=== PATIENT | male | born 1935 | race Caucasian/White ===

== ENCOUNTER → 2016-08-13 | Outpatient (CLI) | payer OTHER ==
[~2016-08-13] MED LIST: AMLO10TA2 PO; AMLO5TAB2 PO; ASCO10004 PO; BETAMETHASONE CREAM TP; CARV6.252 PO; CETI10CA PO; CHOL500015 PO; CINN500C2 PO; GLIP5TAB10 PO; HORS300C PO; INSU100I28 SC; IRON PO; LISI40TA PO; MAGN100T6 PO; MAGNESIUM PO; METF10002 PO; MULT-257 PO; OMNIPAQUE 350 MG/ML, 100ML BOTTLE ONE; OXYB10TA PO; RED600CA2 PO; RED600TA PO; SULF1TAB3 PO; TAMS0.4C2 PO; TRIAMCINOLONE CREAM TP; VISION FORMULA PO; [UNRECOGNIZED DRUG - CODE] PO; [UNRECOGNIZED DRUG - OTHER] PO
== END | disposition home or self-care (01) ==
LOC: CFH 13:03
PROVIDERS: ATTEND Specialist
DX: C43.71 Malignant melanoma of right lower limb, including hip (principal); R91.8 Other nonspecific abnormal finding of lung field; I70.0 Atherosclerosis of aorta; M85.88 Other specified disorders of bone density and structure, other site; Z90.5 Acquired absence of kidney
CPT/HCPCS: 71260; 74177; Q9967

== ENCOUNTER 2016-10-10 17:14 | Emergency (ER) | payer OTHER ==
[~2016-10-10] VITALS: Ht 172.7 cm; Wt 82.2 kg
[~2016-10-10 17:14] MED LIST changes: -OMNIPAQUE 350 MG/ML, 100ML BOTTLE ONE
[2016-10-10] MEDS ORDERED: SODIUM CHLORIDE 0.9% 1,000ML IVBOLUS ONE (17:30)
[2016-10-10] MEDS ORDERED: LISI40TA PO (18:11)
[2016-10-10] MEDS ORDERED: LACT1CAP11 PO (18:11)
[2016-10-10] MEDS ORDERED: GLIP10TA13 PO (18:11)
[2016-10-10] MEDS ORDERED: TRIA1KIT12 TD (18:11)
[2016-10-10] MEDS ORDERED: [UNRECOGNIZED DRUG - OTHER] PO (18:11)
[2016-10-10 18:53] LABS: BLOOD UREA NITROGEN 41 mg/dL (7-18)
[2016-10-10 18:58] LABS: ASPARTATE AMINO TRANSFERASE 21 U/L (15-37)
[2016-10-10 20:22] VITALS: BP 119/55
== END 2016-10-10 20:26 | disposition home or self-care (01) ==
LOC: ED 19:45
DX: D64.81 Anemia due to antineoplastic chemotherapy (principal); C79.9 Secondary malignant neoplasm of unspecified site; Z09 Encounter for follow-up examination after completed treatment for conditions other than malignant neoplasm; I10 Essential (primary) hypertension; E11.9 Type 2 diabetes mellitus without complications
CPT/HCPCS: 36415; 80053; 81001; 85025; 93005; 96360; 99285; J7030

== ENCOUNTER → 2016-11-06 | Outpatient (CLI) | payer OTHER ==
[~2016-11-06] MED LIST changes: +GLIP10TA13 PO; +LACT1CAP11 PO; +TRIA1KIT12 TD
== END | disposition home or self-care (01) ==
LOC: CFH 08:49
PROVIDERS: ATTEND Urology
DX: C64.9 Malignant neoplasm of unspecified kidney, except renal pelvis (principal); N40.0 Benign prostatic hyperplasia without lower urinary tract symptoms; N28.1 Cyst of kidney, acquired; Z90.5 Acquired absence of kidney
CPT/HCPCS: 71010; 76770

== ENCOUNTER → 2016-12-09 | Outpatient (CLI) | payer OTHER ==
[~2016-12-09] MED LIST changes: +OMNIPAQUE 350 MG/ML, 100ML BOTTLE ONE
== END | disposition home or self-care (01) ==
LOC: CFH 11:36
PROVIDERS: ATTEND Specialist
DX: J84.10 Pulmonary fibrosis, unspecified (principal); R91.8 Other nonspecific abnormal finding of lung field; R59.0 Localized enlarged lymph nodes; K66.8 Other specified disorders of peritoneum; K57.30 Diverticulosis of large intestine without perforation or abscess without bleeding; N28.1 Cyst of kidney, acquired; N40.0 Benign prostatic hyperplasia without lower urinary tract symptoms; K86.9 Disease of pancreas, unspecified; I70.0 Atherosclerosis of aorta; C43.71 Malignant melanoma of right lower limb, including hip
CPT/HCPCS: 71260; 74177; Q9967

== ENCOUNTER → 2017-01-23 | Outpatient (CLI) | payer OTHER ==
[~2017-01-23] MED LIST changes: +SULF-169 PO; -SULF1TAB3 PO
== END | disposition home or self-care (01) ==
LOC: CFH 09:21
PROVIDERS: ATTEND Specialist
DX: R91.8 Other nonspecific abnormal finding of lung field (principal); C43.71 Malignant melanoma of right lower limb, including hip; N28.1 Cyst of kidney, acquired; R59.0 Localized enlarged lymph nodes; J84.10 Pulmonary fibrosis, unspecified
CPT/HCPCS: 71260; 74177; Q9967

== ENCOUNTER → 2017-02-06 | Outpatient (CLI) | payer OTHER ==
[~2017-02-06] MED LIST changes: +GADOBUTROL 7.5 MMOL/7.5 ML PFS ONE; -OMNIPAQUE 350 MG/ML, 100ML BOTTLE ONE
== END | disposition home or self-care (01) ==
LOC: RAD 13:22
PROVIDERS: ATTEND Family Medicine
DX: I63.9 Cerebral infarction, unspecified (principal); R25.1 Tremor, unspecified; R53.1 Weakness; Z85.820 Personal history of malignant melanoma of skin
CPT/HCPCS: 70553; A9585

== ENCOUNTER → 2017-02-09 | Outpatient (CLI) | payer OTHER ==
[~2017-02-09] MED LIST changes: -GADOBUTROL 7.5 MMOL/7.5 ML PFS ONE
== END | disposition home or self-care (01) ==
LOC: PETCFH 09:08
PROVIDERS: ATTEND Specialist
DX: C43.9 Malignant melanoma of skin, unspecified (principal)
CPT/HCPCS: 78306; A9503

== ENCOUNTER → 2017-04-21 | Outpatient (CLI) | payer OTHER ==
[~2017-04-21] MED LIST changes: +OMNIPAQUE 350 MG/ML, 100ML BOTTLE ONE
== END | disposition home or self-care (01) ==
LOC: CFH 10:01
PROVIDERS: ATTEND Specialist
DX: C43.71 Malignant melanoma of right lower limb, including hip (principal)
CPT/HCPCS: 71260; 74177; Q9967

== ENCOUNTER → 2017-06-12 | Outpatient (CLI) | payer OTHER ==
[~2017-06-12] MED LIST changes: -OMNIPAQUE 350 MG/ML, 100ML BOTTLE ONE
== END | disposition home or self-care (01) ==
LOC: CFH 08:00
PROVIDERS: ATTEND Specialist
DX: N28.1 Cyst of kidney, acquired (principal); C43.71 Malignant melanoma of right lower limb, including hip; N40.0 Benign prostatic hyperplasia without lower urinary tract symptoms
CPT/HCPCS: 76770

== ENCOUNTER → 2017-06-25 | Outpatient (CLI) | payer OTHER ==
[~2017-06-25] MED LIST changes: +OMNIPAQUE 350 MG/ML, 100ML BOTTLE ONE
== END ==
LOC: CFH 12:56
PROVIDERS: ATTEND Specialist
DX: C43.71 Malignant melanoma of right lower limb, including hip (principal); C64.1 Malignant neoplasm of right kidney, except renal pelvis
CPT/HCPCS: 71260; 74177; Q9967

== ENCOUNTER → 2017-07-27 | Outpatient (CLI) | payer OTHER ==
[~2017-07-27] MED LIST changes: +GADOBUTROL 7.5 MMOL/7.5 ML VIAL ONE; -OMNIPAQUE 350 MG/ML, 100ML BOTTLE ONE
== END | disposition home or self-care (01) ==
LOC: CFH 11:45
PROVIDERS: ATTEND Specialist
DX: I67.82 Cerebral ischemia (principal); G31.89 Other specified degenerative diseases of nervous system; R90.82 White matter disease, unspecified; J34.1 Cyst and mucocele of nose and nasal sinus; C43.71 Malignant melanoma of right lower limb, including hip; C64.1 Malignant neoplasm of right kidney, except renal pelvis
CPT/HCPCS: 70553; A9585

== ENCOUNTER → 2017-09-22 | Outpatient (CLI) | payer OTHER ==
[~2017-09-22] MED LIST changes: -GADOBUTROL 7.5 MMOL/7.5 ML VIAL ONE; +OMNIPAQUE 350 MG/ML, 100ML BOTTLE ONE
== END | disposition home or self-care (01) ==
LOC: CFH 11:11
PROVIDERS: ATTEND Specialist
DX: C64.1 Malignant neoplasm of right kidney, except renal pelvis (principal); R59.1 Generalized enlarged lymph nodes; C43.71 Malignant melanoma of right lower limb, including hip
CPT/HCPCS: 71260; 74177; Q9967

== ENCOUNTER → 2017-12-11 | Outpatient (CLI) | payer OTHER | END | disposition home or self-care (01) | LOC: CFH 13:19 | PROVIDERS: ATTEND Specialist | DX: J84.10 Pulmonary fibrosis, unspecified (principal); R59.0 Localized enlarged lymph nodes; N28.1 Cyst of kidney, acquired; C43.71 Malignant melanoma of right lower limb, including hip | CPT/HCPCS: 71260; 74177; Q9967 ==

== ENCOUNTER → 2018-05-07 | Outpatient (CLI) | payer OTHER ==
[~2018-05-07] MED LIST changes: +AMLO-150 PO; -AMLO10TA2 PO; +AMLO10TA6 PO; -AMLO5TAB2 PO
== END | disposition home or self-care (01) ==
LOC: CFH 12:15
PROVIDERS: ATTEND Specialist
DX: C64.1 Malignant neoplasm of right kidney, except renal pelvis (principal); C43.71 Malignant melanoma of right lower limb, including hip; I70.0 Atherosclerosis of aorta; R91.1 Solitary pulmonary nodule
CPT/HCPCS: 71260; 74177; Q9967

== ENCOUNTER → 2018-06-30 | Outpatient (CLI) | payer MEDICARE ==
[~2018-06-30] MED LIST changes: -AMLO10TA6 PO; +AMLO10TA8 PO
== END | disposition home or self-care (01) ==
LOC: CFH 08:02
PROVIDERS: ATTEND Specialist
DX: C64.1 Malignant neoplasm of right kidney, except renal pelvis (principal); C43.71 Malignant melanoma of right lower limb, including hip; R59.0 Localized enlarged lymph nodes; M85.88 Other specified disorders of bone density and structure, other site
CPT/HCPCS: 71260; 74177; Q9967

== ENCOUNTER 2018-07-06 08:17 | Day surgery (SDC) | payer MEDICARE ==
[~2018-07-06] VITALS: Ht 172.7 cm; Wt 73.0 kg
[~2018-07-06 08:17] MED LIST changes: -OMNIPAQUE 350 MG/ML, 100ML BOTTLE ONE
[2018-07-06 09:09] VITALS: BP 150/76
[2018-07-06] MEDS ORDERED: SODIUM CHLORIDE 0.9% 1,000 ML IV SCH (09:30)
[2018-07-06] MEDS ORDERED: FLUMAZENIL 0.1 MG/1 ML, 5ML ONE (10:11)
[2018-07-06] MEDS ORDERED: FENTANYL PF 100 MCG/2ML ONE ×2 (10:11)
[2018-07-06] MEDS ORDERED: NALOXONE 1 MG/ML, 2ML ONE (10:11)
[2018-07-06] MEDS ORDERED: MIDAZOLAM 1 MG/ML, 5ML ONE (10:11)
[2018-07-06] MEDS ORDERED: LIDOCAINE-MPF 1%, 5ML ONE (10:22)
== END 2018-07-06 12:45 | disposition home or self-care (01) ==
LOC: OUT 08:17
PROVIDERS: ATTEND Specialist
DX: C64.1 Malignant neoplasm of right kidney, except renal pelvis (principal); C43.71 Malignant melanoma of right lower limb, including hip; E11.9 Type 2 diabetes mellitus without complications; I10 Essential (primary) hypertension; Z87.891 Personal history of nicotine dependence; Z98.890 Other specified postprocedural states
CPT/HCPCS: 49180; 77012; 88305; 99156; 99157; J2250; J3010; J7030; J2310

== ENCOUNTER → 2018-07-26 | Outpatient (CLI) | payer MEDICARE | END | disposition home or self-care (01) | LOC: RAD 09:14 | PROVIDERS: ATTEND Specialist | DX: R13.10 Dysphagia, unspecified (principal) | CPT/HCPCS: 74230 ==

== ENCOUNTER → 2018-08-31 | Outpatient (CLI) | payer MEDICARE ==
[~2018-08-31] MED LIST changes: +GADOBUTROL 7.5 MMOL/7.5 ML PFS ONE
== END | disposition home or self-care (01) ==
LOC: CFH 10:26
PROVIDERS: ATTEND Urology
DX: M47.816 Spondylosis without myelopathy or radiculopathy, lumbar region (principal); R59.9 Enlarged lymph nodes, unspecified; N39.41 Urge incontinence
CPT/HCPCS: 72158; A9585

== ENCOUNTER 2018-09-12 22:11 | Emergency (ER) | payer MEDICARE ==
[~2018-09-12] VITALS: Ht 172.7 cm; Wt 75.0 kg
[~2018-09-12 22:11] MED LIST changes: -GADOBUTROL 7.5 MMOL/7.5 ML PFS ONE
[2018-09-12] MEDS: SODIUM CHLORIDE FLUSH 10ML SYR IVF ONE (22:30)
[2018-09-12] MEDS: PLEASE ENTER HEIGHT AND WEIGHT MC SCH (22:30)
[2018-09-12] MEDS ORDERED: PRED2.5T PO (22:32)
[2018-09-12] MEDS ORDERED: OPDIVO (22:32)
--- NOTE | 2018-09-12 22:36 | NUR ---
PT PLACED IN HOPTAL GOWN. EKG DONE. LABS HAVE BEEN DRAWN. PT AT BEDSIDE. BILAT BEDRAILS UP. CALL LIGHT WITHIN REACH. PT GOING FOR CT AT THIS TIME.
[2018-09-12 22:39] LABS: BASOPHILS # (AUTO) 0.02 x10^3/uL (0-0.1); BASOPHILS % (AUTO) 0 % (0-1); EOSINOPHILS # (AUTO) 0.22 x10^3/uL (0-0.4); EOSINOPHILS % (AUTO) 3 % (1-7); LYMPHOCYTES # (AUTO) 0.72 x10^3/uL (1-3.4); LYMPHOCYTES % (AUTO) 10 % (22-44); MD NO; MEAN CORPUSCULAR HEMOGLOBIN 28.3 pg (27.5-34.5); MEAN CORPUSCULAR HGB CONC 33.8 g/dL (33.2-36.2); MEAN CORPUSCULAR VOLUME 83.9 fL (81-97); MEAN PLATELET VOLUME 7.2 fL (7.4-10.4); MONOCYTES # (AUTO) 0.39 x10^3/uL (0.2-0.8); MONOCYTES % (AUTO) 5 % (2-9); NEUTROPHILS # (AUTO) 6.08 x10^3/uL (1.8-6.8); NEUTROPHILS % (AUTO) 82 % (42-75); PLATELET COUNT 237 x10^3/uL (130-400); RED BLOOD COUNT 4.12 x10^6/uL (4.38-5.82)
[2018-09-12 22:52] LABS: ALANINE AMINOTRANSFERASE 18 U/L (12-78); ALBUMIN 3.4 g/dL (3.4-5.0); ANION GAP 8 mmol/L (5-15); CALCIUM 8.7 mg/dL (8.5-10.1); CHLORIDE 111 mmol/L (98-107); CREATININE 1.41 mg/dL (0.7-1.3)
[2018-09-12 22:57] LABS: ALKALINE PHOSPHATASE 102 U/L (45-117); BILIRUBIN,TOTAL 0.2 mg/dL (0.2-1.0); TOTAL PROTEIN 6.8 g/dL (6.4-8.2); TROPONIN I < 0.015 ng/mL (0.000-0.045)
[2018-09-12] MEDS ORDERED: ONDANSETRON 2MG/ML, 2ML ONE (23:15)
[2018-09-12 23:54] VITALS: BP 176/72
[2018-09-13 00:04] LABS: MICROSCOPIC AUTO
[2018-09-13 00:05] LABS: CULTURE INDICATED? NO
[2018-09-13] MEDS: ONDANSETRON 2MG/ML, 2ML IVPush ONE (00:27)
== END 2018-09-13 00:47 | disposition home or self-care (01) ==
LOC: ED 23:41
DX: N20.2 Calculus of kidney with calculus of ureter (principal); E11.9 Type 2 diabetes mellitus without complications; I11.9 Hypertensive heart disease without heart failure
CPT/HCPCS: 36415; 71045; 74176; 80053; 81001; 83690; 84484; 85025; 93005; 99284

== ENCOUNTER 2018-12-14 10:06 | Outpatient (CLI) | payer MEDICARE | END 2018-12-14 23:59 | disposition home or self-care (01) | LOC: CFH 10:06 | PROVIDERS: ATTEND Specialist | DX: C43.71 Malignant melanoma of right lower limb, including hip (principal); N28.1 Cyst of kidney, acquired; R59.0 Localized enlarged lymph nodes | CPT/HCPCS: 71250; 74176 ==

== ENCOUNTER → 2019-06-14 | Outpatient (CLI) | payer MEDICARE ==
[~2019-06-14] MED LIST changes: +OMNIPAQUE 350 MG/ML, 100ML BOTTLE ONE; +OPDIVO; +OSEL75CA14 PO; -OXYB10TA PO; +OXYB10TA26 PO; +PRED2.5T PO
== END | disposition home or self-care (01) ==
LOC: CFH 12:16
PROVIDERS: ATTEND Specialist
DX: C64.1 Malignant neoplasm of right kidney, except renal pelvis (principal); C43.71 Malignant melanoma of right lower limb, including hip; N28.1 Cyst of kidney, acquired; R59.1 Generalized enlarged lymph nodes
CPT/HCPCS: 71260; 74177; Q9967

== ENCOUNTER → 2019-07-11 | Outpatient (CLI) | payer MEDICARE ==
[~2019-07-11] MED LIST changes: -OMNIPAQUE 350 MG/ML, 100ML BOTTLE ONE
== END | disposition home or self-care (01) ==
LOC: CFH 12:57
PROVIDERS: ATTEND Nurse Practitioner
DX: C43.71 Malignant melanoma of right lower limb, including hip (principal); C64.1 Malignant neoplasm of right kidney, except renal pelvis; Z79.899 Other long term (current) drug therapy; C77.9 Secondary and unspecified malignant neoplasm of lymph node, unspecified; C79.51 Secondary malignant neoplasm of bone
CPT/HCPCS: 71046

== ENCOUNTER → 2019-09-21 | Outpatient (CLI) | payer MEDICARE ==
[~2019-09-21] MED LIST changes: +GADOTERATE 7.5 MMOL/15 ML SYR ONE; +OMNIPAQUE 350 MG/ML, 100ML BOTTLE ONE
== END | disposition home or self-care (01) ==
LOC: CFH 12:55
PROVIDERS: ATTEND Specialist
DX: C64.1 Malignant neoplasm of right kidney, except renal pelvis (principal); C43.71 Malignant melanoma of right lower limb, including hip; R26.81 Unsteadiness on feet; M62.81 Muscle weakness (generalized); R41.3 Other amnesia; C43.9 Malignant melanoma of skin, unspecified; G31.9 Degenerative disease of nervous system, unspecified; I67.82 Cerebral ischemia; J84.10 Pulmonary fibrosis, unspecified; G06.0 Intracranial abscess and granuloma; R59.0 Localized enlarged lymph nodes
CPT/HCPCS: 70553; 71260; 74177; A9575; Q9967

== ENCOUNTER 2019-10-07 10:58 | Emergency (ER) | payer MEDICARE ==
[~2019-10-07] VITALS: Ht 172.7 cm; Wt 64.5 kg
[~2019-10-07 10:58] MED LIST changes: -GADOTERATE 7.5 MMOL/15 ML SYR ONE; -OMNIPAQUE 350 MG/ML, 100ML BOTTLE ONE
--- NOTE | 2019-10-07 11:07 | NUR ---
TISSUE COORDINATOR: OBTAINED PT'S BGL, 300. REPORT TO IRRIGATION PUMP INSTALLER.
--- NOTE | 2019-10-07 11:43 | NUR ---
PT BIB SPOUSE FOR HIGH BLOOD SUGARS SINCE MID AUGUST THAT SHE SEEMS TO NOT HAVE UNDER CONTROL. PT HAS HAD FEVERS SINCE YESTERDAY ACCOMPANIED BY SORE THROAT. SPOUSE REPORTS HE HAS HAS CHRONIC COUGH FOR YEARS. BS IN TRIAGE WAS 300. SPOUSE REPORTS HE HAS NOT BEEN TAKING GLIPIZIDE SHE CAN NOT FIND IT IN HIS MEDICINE CABINET. PT HAS WOUND TO LEFT BUTTOCKS.
--- NOTE | 2019-10-07 12:03 | NUR ---
RECEIVED REPORT FROM POLINA CHEN. ASSUMING CARE AT THIS TIME.
[2019-10-07] MEDS ORDERED: LEVO5TAB29 PO (12:04)
[2019-10-07] MEDS ORDERED: CARB1TAB46 PO (12:04)
[2019-10-07] MEDS ORDERED: ASCO500T7 PO (12:04)
[2019-10-07] MEDS ORDERED: CETI10CA PO (12:04)
[2019-10-07] MEDS ORDERED: OPDIVO (12:04)
[2019-10-07] MEDS ORDERED: ATOR10TA PO (12:04)
[2019-10-07] MEDS ORDERED: LISI-170 PO (12:04)
[2019-10-07 12:34] LABS: BASOPHILS # (AUTO) 0.01 x10^3/uL (0-0.1); BASOPHILS % (AUTO) 0 % (0-1); EOSINOPHILS % (AUTO) 2 % (1-7); LYMPHOCYTES # (AUTO) 0.37 x10^3/uL (1-3.4); LYMPHOCYTES % (AUTO) 7 % (22-44); MD NO; MEAN CORPUSCULAR HEMOGLOBIN 28.3 pg (27.5-34.5); MEAN CORPUSCULAR HGB CONC 33.1 g/dL (33.2-36.2); MEAN CORPUSCULAR VOLUME 85.6 fL (81-97); MEAN PLATELET VOLUME 7.8 fL (7.4-10.4); MONOCYTES # (AUTO) 0.28 x10^3/uL (0.2-0.8); MONOCYTES % (AUTO) 5 % (2-9); NEUTROPHILS # (AUTO) 4.94 x10^3/uL (1.8-6.8); NEUTROPHILS % (AUTO) 87 % (42-75); PLATELET COUNT 217 x10^3/uL (130-400); RED BLOOD COUNT 3.69 x10^6/uL (4.38-5.82); RED CELL DISTRIBUTION WIDTH 13.7 % (9.4-14.8)
--- NOTE | 2019-10-07 12:40 | NUR ---
PT RESTING COMFORTABLY ON GURNEY. NADN. WARM BLANKET PROVIDED. AT BEDSIDE.
[2019-10-07 12:48] LABS: ALBUMIN 2.9 g/dL (3.4-5.0); ANION GAP 9 mmol/L (5-15); CALCIUM 8.4 mg/dL (8.5-10.1); CHLORIDE 102 mmol/L (98-107)
[2019-10-07 12:51] LABS: CREATININE 1.42 mg/dL (0.7-1.3)
[2019-10-07 13:30] LABS: MICROSCOPIC INDICATED
--- NOTE | 2019-10-07 13:43 | NUR ---
ALL RESULTS ARE BACK AT THIS TIME. CHART UP FOR RECHECK.
[2019-10-07 13:53] VITALS: BP 145/65
--- NOTE | 2019-10-07 14:01 | NUR ---
MD AT BEDSIDE TO UPDATE PT AND ON POC.
[2019-10-07] MEDS ORDERED: CEPHALEXIN 500 MG CAPSULE ONE (14:29)
[2019-10-07] MEDS ORDERED: CEPHALEXIN 500 MG CAPSULE PO ONE (14:30)
== END 2019-10-07 14:42 | disposition home or self-care (01) ==
LOC: ED 14:00
DX: E10.65 Type 1 diabetes mellitus with hyperglycemia (principal); L89.151 Pressure ulcer of sacral region, stage 1; R53.1 Weakness; R50.9 Fever, unspecified; J02.9 Acute pharyngitis, unspecified; Z20.828 Contact with and (suspected) exposure to other viral communicable diseases; E11.9 Type 2 diabetes mellitus without complications
CPT/HCPCS: 36415; 71045; 80048; 81001; 82040; 83605; 83615; 84145; 85025; 87040; 93005; 99285; U0001; 82962

== ENCOUNTER → 2020-01-05 | Outpatient (CLI) | payer MEDICARE ==
[~2020-01-05] MED LIST changes: +ASCO500T7 PO; +ATOR10TA PO; +CARB1TAB46 PO; +LEVO5TAB29 PO; +LISI-170 PO
== END | disposition home or self-care (01) ==
LOC: CFH 09:00
PROVIDERS: ATTEND Specialist
DX: C43.71 Malignant melanoma of right lower limb, including hip (principal); N28.1 Cyst of kidney, acquired; R59.0 Localized enlarged lymph nodes; Q63.9 Congenital malformation of kidney, unspecified
CPT/HCPCS: 71250; 74176

== ENCOUNTER → 2020-01-17 | Outpatient (CLI) | payer MEDICARE ==
[~2020-01-17] MED LIST changes: +ASCO100018 PO; -ASCO10004 PO
== END | disposition home or self-care (01) ==
LOC: RAD 09:24
PROVIDERS: ATTEND Psychiatry & Neurology Neurology
DX: M47.812 Spondylosis without myelopathy or radiculopathy, cervical region (principal); G20 Parkinson's disease
CPT/HCPCS: 72141

== ENCOUNTER 2020-02-09 01:57 | Observation (INO) | payer MEDICARE ==
[~2020-02-09] VITALS: Ht 172.7 cm; Wt 71.7 kg
--- NOTE | 2020-02-09 03:20 | NUR ---
Pt at bedside. informed nurse that pt is DM and last time he fell his BS had dropped, so to please check. RN checked BS = 27, recheck BS = 30. RN notified MD. Pt given 2 apple juices. ANITHA.
[2020-02-09] MEDS ORDERED: SODIUM CHLORIDE FLUSH 10ML SYR IVF ONE (03:30)
--- NOTE | 2020-02-09 03:40 | NUR ---
BS recheck 51, given 2 more apple juices. WCMARTIN.
[2020-02-09 03:49] LABS: ALANINE AMINOTRANSFERASE 9 U/L (12-78); ALBUMIN 3.5 g/dL (3.4-5.0); ANION GAP 6 mmol/L (5-15); CALCIUM 8.9 mg/dL (8.5-10.1); CHLORIDE 110 mmol/L (98-107); CREATININE 1.34 mg/dL (0.7-1.3)
[2020-02-09 03:52] LABS: BASOPHILS # (AUTO) 0.01 x10^3/uL (0-0.1); BASOPHILS % (AUTO) 0 % (0-1); EOSINOPHILS # (AUTO) 0.06 x10^3/uL (0-0.4); EOSINOPHILS % (AUTO) 1 % (1-7); LYMPHOCYTES # (AUTO) 0.48 x10^3/uL (1-3.4); LYMPHOCYTES % (AUTO) 8 % (22-44); MD NO; MEAN CORPUSCULAR HEMOGLOBIN 28.1 pg (27.5-34.5); MEAN PLATELET VOLUME 7.5 fL (7.4-10.4); MONOCYTES # (AUTO) 0.38 x10^3/uL (0.2-0.8); MONOCYTES % (AUTO) 6 % (2-9); NEUTROPHILS # (AUTO) 4.97 x10^3/uL (1.8-6.8); NEUTROPHILS % (AUTO) 84 % (42-75); PLATELET COUNT 232 x10^3/uL (130-400); RED BLOOD COUNT 3.51 x10^6/uL (4.38-5.82); RED CELL DISTRIBUTION WIDTH 14.4 % (9.4-14.8)
[2020-02-09 03:54] LABS: MICROSCOPIC AUTO
--- NOTE | 2020-02-09 03:54 | NUR ---
Airport Sales Agent Rslt BS 41 per lab. aware.
[2020-02-09 03:59] LABS: ALKALINE PHOSPHATASE 76 U/L (45-117); BILIRUBIN,TOTAL 0.3 mg/dL (0.2-1.0); T4 (THYROXINE) 8.9 mcg/dL (4.5-12.1); TOTAL PROTEIN 6.6 g/dL (6.4-8.2); TROPONIN I < 0.015 ng/mL (0.000-0.045)
[2020-02-09] MEDS ORDERED: POTASSIUM PHOSPHATE IV SCH (04:30)
[2020-02-09] MEDS ORDERED: D5 IV SCH (04:30)
[2020-02-09] MEDS ORDERED: NACL IV SCH (04:30)
[2020-02-09] MEDS ORDERED: POTASSIUM CHLORIDE IV SCH (04:30)
--- NOTE | 2020-02-09 05:32 | NUR ---
Report given to GUSTAVO Myles.
[2020-02-09] MEDS ORDERED: DEXTROSE 4 GM TAB.CHEW PO PRN (06:00)
[2020-02-09] MEDS ORDERED: DEXTROSE 50%, 50ML SYRINGE IVPush PRN (06:00)
[2020-02-09] MEDS ORDERED: GLUCAGON 1 MG IM PRN (06:00)
[2020-02-09 06:27] VITALS: BP 136/67
[2020-02-09 07:05] LABS: FREE T4 (FREE THYROXINE) 1.08 ng/dL (0.76-1.46)
[2020-02-09 07:17] VITALS: BP 126/54
[2020-02-09] MEDS: SODIUM CHLORIDE FLUSH 10ML SYR IVF SCH ×2 (09:43→21:00)
[2020-02-09 12:22] VITALS: BP 141/69
[2020-02-09] MEDS: APIXABAN 5 MG TABLET PO SCH ×2 (13:40→22:26)
[2020-02-09] MEDS ORDERED: HORS300C PO (18:46)
[2020-02-09] MEDS ORDERED: DIPH25CA64 PO (18:46)
[2020-02-09 19:02] VITALS: BP 150/77
[2020-02-09 20:48] VITALS: BP 160/72
[2020-02-09 20:50] VITALS: BP 145/63
[2020-02-10] MEDS ORDERED: RED600TA PO (01:05)
[2020-02-10] MEDS ORDERED: LUTE40CA PO (01:05)
[2020-02-10] MEDS ORDERED: PIOG15TA66 PO (01:05)
[2020-02-10 01:11] VITALS: BP 159/71
[2020-02-10 04:56] LABS: BASOPHILS # (AUTO) 0.01 x10^3/uL (0-0.1); BASOPHILS % (AUTO) 0 % (0-1); EOSINOPHILS # (AUTO) 0.14 x10^3/uL (0-0.4); EOSINOPHILS % (AUTO) 3 % (1-7); LYMPHOCYTES # (AUTO) 0.56 x10^3/uL (1-3.4); LYMPHOCYTES % (AUTO) 11 % (22-44); MD NO; MEAN CORPUSCULAR HEMOGLOBIN 28.5 pg (27.5-34.5); MEAN CORPUSCULAR HGB CONC 32.8 g/dL (33.2-36.2); MONOCYTES # (AUTO) 0.42 x10^3/uL (0.2-0.8); MONOCYTES % (AUTO) 9 % (2-9); NEUTROPHILS # (AUTO) 3.74 x10^3/uL (1.8-6.8); NEUTROPHILS % (AUTO) 77 % (42-75); PLATELET COUNT 199 x10^3/uL (130-400); RED BLOOD COUNT 3.25 x10^6/uL (4.38-5.82)
[2020-02-10 05:03] LABS: ANION GAP 6 mmol/L (5-15); CALCIUM 8.5 mg/dL (8.5-10.1); CHLORIDE 109 mmol/L (98-107); CHOLESTEROL, TOTAL 118 mg/dL (140-239); CREATININE 1.16 mg/dL (0.7-1.3); TRIGLYCERIDES 79 mg/dL (50-200); VLDL CHOLESTEROL 16 mg/dL (0-25)
[2020-02-10 05:05] LABS: CHOL/HDL RATIO 2.2; HDL CHOL % 46 % (26-37); HDL CHOLESTEROL (DIRECT) 54 mg/dL (40-60); LDL CHOLESTEROL,CALCULATED 48 mg/dL (54-169); LDL/HDL RATIO 0.9 (0.5-3.0)
[2020-02-10 07:57] VITALS: BP 173/77
[2020-02-10 08:02] VITALS: BP 169/66
[2020-02-10 08:12] VITALS: BP 140/58
[2020-02-10] MEDS: APIXABAN 5 MG TABLET PO SCH (09:00)
[2020-02-10] MEDS: SODIUM CHLORIDE FLUSH 10ML SYR IVF SCH (09:00)
[2020-02-10] MEDS ORDERED: APIX5TAB PO (10:53)
[2020-02-10] MEDS ORDERED: FLU VACC QS2020-21(6MOS UP)/PF 60MCG/0.5 ML SYR IM-VACC ONE (13:00)
[2020-02-10 14:23] VITALS: BP 167/72
[2020-02-13] MEDS ORDERED: APIXABAN 5 MG TABLET PO SCH (09:00)
== END 2020-02-10 15:45 | disposition home or self-care (01) ==
LOC: ED 04:36 → EDIP 04:57 → INTOOBSV 04:57 → 3N 05:43 → DCLOUNGE 02-10 15:36
PROVIDERS: ADMIT Family Medicine; ATTEND Family Medicine
DX: E11.649 Type 2 diabetes mellitus with hypoglycemia without coma (principal); S06.0X9A Concussion with loss of consciousness of unspecified duration, initial encounter; I82.401 Acute embolism and thrombosis of unspecified deep veins of right lower extremity; R60.9 Edema, unspecified; E11.9 Type 2 diabetes mellitus without complications; D50.0 Iron deficiency anemia secondary to blood loss (chronic); C43.9 Malignant melanoma of skin, unspecified; C79.9 Secondary malignant neoplasm of unspecified site; G20 Parkinson's disease; I10 Essential (primary) hypertension; E78.5 Hyperlipidemia, unspecified; J44.9 Chronic obstructive pulmonary disease, unspecified; N40.0 Benign prostatic hyperplasia without lower urinary tract symptoms; L29.9 Pruritus, unspecified; G47.33 Obstructive sleep apnea (adult) (pediatric); Z86.718 Personal history of other venous thrombosis and embolism; Z79.899 Other long term (current) drug therapy; Z79.01 Long term (current) use of anticoagulants; Z85.528 Personal history of other malignant neoplasm of kidney; Z90.5 Acquired absence of kidney; W01.0XXA Fall on same level from slipping, tripping and stumbling without subsequent striking against object, initial encounter; Y93.89 Activity, other specified; Y92.89 Other specified places as the place of occurrence of the external cause; Z79.52 Long term (current) use of systemic steroids; Z79.84 Long term (current) use of oral hypoglycemic drugs; Z23 Encounter for immunization
CPT/HCPCS: 36415; 70450; 71045; 80048; 80053; 80061; 81001; 82962; 83036; 83735; 83880; 84100; 84436; 84439; 84443; 84484; 85025; 90686; 92610; 93005; 96360; 96361; 97163; 99291; G0008; G0378; J3480

== ENCOUNTER 2020-03-29 11:18 | Day surgery (SDC) | payer MEDICARE ==
[~2020-03-29] VITALS: Ht 170.2 cm; Wt 64.0 kg
[~2020-03-29 11:18] MED LIST changes: +AMLO-211 PO; -AMLO10TA8 PO; +APIX5TAB PO; +DIPH25CA64 PO; +LUTE40CA PO; +PIOG15TA66 PO
[2020-03-29 11:53] VITALS: BP 157/67
[2020-03-29] MEDS ORDERED: SODIUM CHLORIDE 0.9% 1,000 ML IV SCH (12:00)
[2020-03-29] MEDS ORDERED: CEFAZOLIN PMX 1GM/50ML 50 ML ONE (12:00)
[2020-03-29] MEDS ORDERED: CEFAZOLIN 1,000 MG in SODIUM CHLORIDE 0.9% 50 ML IV SCH (12:00)
[2020-03-29] MEDS ORDERED: LIDOCAINE 1%, 20ML ONE (13:04)
[2020-03-29] MEDS ORDERED: FENTANYL PF 100 MCG/2ML ONE (13:27)
[2020-03-29] MEDS ORDERED: MIDAZOLAM 1 MG/ML, 5ML ONE (13:27)
[2020-03-29] MEDS ORDERED: NALOXONE 1 MG/ML, 2ML ONE (13:27)
[2020-03-29] MEDS ORDERED: FLUMAZENIL 0.1 MG/1 ML, 5ML ONE (13:27)
== END 2020-03-29 15:35 | disposition home or self-care (01) ==
LOC: RAD 11:18
PROVIDERS: ATTEND Specialist
DX: Z45.2 Encounter for adjustment and management of vascular access device (principal); C64.1 Malignant neoplasm of right kidney, except renal pelvis; G47.30 Sleep apnea, unspecified; D50.9 Iron deficiency anemia, unspecified; I10 Essential (primary) hypertension; E11.9 Type 2 diabetes mellitus without complications; G20 Parkinson's disease; F12.90 Cannabis use, unspecified, uncomplicated; Z98.890 Other specified postprocedural states; Z87.891 Personal history of nicotine dependence; Z79.01 Long term (current) use of anticoagulants; Z79.899 Other long term (current) drug therapy; Z79.84 Long term (current) use of oral hypoglycemic drugs
CPT/HCPCS: 36561; 76937; 77001; 82962; 99156; 99157; C1788; J1642; J2250; J3010; J2310

== ENCOUNTER 2020-05-16 16:39 | Emergency (ER) | payer MEDICARE ==
[~2020-05-16] VITALS: Ht 172.7 cm; Wt 66.0 kg
--- NOTE | 2020-05-16 16:53 | NUR ---
Provider at bedside.
--- NOTE | 2020-05-16 17:45 | NUR ---
Pt.'s at bedside
--- NOTE | 2020-05-16 18:21 | NUR ---
Pt's at bedside.
--- NOTE | 2020-05-16 18:59 | NUR ---
REPORT FROM MARY ALICE CHEN.
--- NOTE | 2020-05-16 18:59 | NUR ---
Report to Brett
--- NOTE | 2020-05-16 19:17 | NUR ---
PT TRANSPORTED TO CT.
[2020-05-16 20:02] VITALS: BP 148/58
== END 2020-05-16 20:38 | disposition home or self-care (01) ==
LOC: ED 17:13
DX: S50.01XA Contusion of right elbow, initial encounter (principal); S09.90XA Unspecified injury of head, initial encounter; M54.2 Cervicalgia; W22.8XXA Striking against or struck by other objects, initial encounter; Y93.89 Activity, other specified; Y92.009 Unspecified place in unspecified non-institutional (private) residence as the place of occurrence of the external cause; Y99.8 Other external cause status
CPT/HCPCS: 70450; 72125; 99285

== ENCOUNTER → 2020-10-25 | Outpatient (CLI) | payer MEDICARE ==
[~2020-10-25] MED LIST changes: -LISI40TA PO; +LISI40TA9 PO
== END | disposition home or self-care (01) ==
LOC: RAD 13:15
PROVIDERS: ATTEND Family Medicine
DX: C64.9 Malignant neoplasm of unspecified kidney, except renal pelvis (principal); R05 Cough; R59.0 Localized enlarged lymph nodes; R94.4 Abnormal results of kidney function studies; N28.89 Other specified disorders of kidney and ureter
CPT/HCPCS: 71250; 74176

== ENCOUNTER 2020-10-29 21:24 | Emergency (ER) | payer MEDICARE ==
[~2020-10-29] VITALS: Ht 172.7 cm; Wt 60.0 kg
--- NOTE | 2020-10-29 21:42 | NUR ---
LILIAA FROM HOME IN [place]. PT C/O OF MGLF SLIPPING ON A WET MOPPED FLOOR AND HITTING HEAD. C/O HEADACHE DENIES LOC, CP, SOB. A&0X4, BREATHING EVEN AND UNLABORED. NADN. 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 VSS. BED IN LOW POSITION, RAILS ENGAGED. CALL LIGHT ON LAP TM
--- NOTE | 2020-10-29 21:42 | NUR ---
PT OFF UNIT IN IMAGING
[2020-10-30 00:19] VITALS: BP 134/60
--- NOTE | 2020-10-30 00:26 | NUR ---
Patient given discharge instructions and they have confirmed that they understand the instructions. Patient WHEELCHAIRED TO REGISTRATION. NAD, all questions answered appropriately, denies additional needs at this time. No personal belongings left in room after discharge.
== END 2020-10-30 00:28 | disposition home or self-care (01) ==
LOC: ED 10-30 00:15
DX: S06.0X0A Concussion without loss of consciousness, initial encounter (principal); I11.0 Hypertensive heart disease with heart failure; E11.649 Type 2 diabetes mellitus with hypoglycemia without coma; D68.9 Coagulation defect, unspecified; Z86.718 Personal history of other venous thrombosis and embolism; W01.0XXA Fall on same level from slipping, tripping and stumbling without subsequent striking against object, initial encounter; Y93.89 Activity, other specified; Y92.009 Unspecified place in unspecified non-institutional (private) residence as the place of occurrence of the external cause; Y99.8 Other external cause status
CPT/HCPCS: 70450; 72125; 99285

== ENCOUNTER 2020-11-29 21:48 | Emergency (ER) | payer MEDICARE ==
[~2020-11-29] VITALS: Ht 172.7 cm; Wt 65.0 kg
--- NOTE | 2020-11-29 21:58 | NUR ---
AURY. PT C/O OF MULTIPLE FALLS TODAY. LAST FALL WAS ONE HOUR AGO WHERE PT STATES HE WAS WALKING OUT OF ROOM AND SLIPPED ON THE CARPET AND HIT HIS HEAD. PT DENIES LOC, HEAD OR NECK PAIN. REPORTS RIGHT ARM AND RT LEG PAIN. PT TAKES ELIQUIS. ATTACHED TO MONITORS, VSS, NADN. A&OX4 BED IN LOW POSITION, YELLOW SOCKS APPLIED, RAILS ENGAGED, CALL LIGHT ON LAP.
--- NOTE | 2020-11-29 22:09 | NUR ---
X-RAY TECH AT BEDSIDE
--- NOTE | 2020-11-29 22:22 | NUR ---
PT OFF UNIT IN IMAGING
--- NOTE | 2020-11-29 22:34 | NUR ---
ATTACHED TO CARD/SP02/BP MONITORS, VSS, ARIANAN BACK FROM IMAGING. WCTM.
--- NOTE | 2020-11-29 23:45 | NUR ---
PT AMBULATED DOWN HALLWAY WITH FWW WITH STEADY GAIT ROADTEST SUCCESSFUL AND COMPLETED.
[2020-11-30 00:35] VITALS: BP 128/58
--- NOTE | 2020-11-30 00:36 | NUR ---
Patient/CaregiveR given discharge instructions and they have confirmed that they understand the instructions. Patient WHEELCHAIRED OUT. NAD, all questions answered appropriately, denies additional needs at this time. No personal belongings left in room after discharge. PT RT ELBOW CLEANSED AND BANDAGED TO HOSPITAL PROTOCOL PRIOR TO DICHARGE.
== END 2020-11-30 01:27 | disposition home or self-care (01) ==
LOC: ED 21:54
DX: S09.90XA Unspecified injury of head, initial encounter (principal); S50.311A Abrasion of right elbow, initial encounter; M54.2 Cervicalgia; R07.89 Other chest pain; W01.0XXA Fall on same level from slipping, tripping and stumbling without subsequent striking against object, initial encounter; I10 Essential (primary) hypertension; E11.9 Type 2 diabetes mellitus without complications; Z86.718 Personal history of other venous thrombosis and embolism; Y93.89 Activity, other specified; Y92.009 Unspecified place in unspecified non-institutional (private) residence as the place of occurrence of the external cause; Y99.8 Other external cause status
CPT/HCPCS: 70450; 71045; 72125; 99285

== ENCOUNTER → 2020-12-07 | Outpatient (CLI) | payer MEDICARE | END | disposition home or self-care (01) | LOC: RAD 08:22 | PROVIDERS: ATTEND Specialist | DX: C43.71 Malignant melanoma of right lower limb, including hip (principal); R22.2 Localized swelling, mass and lump, trunk | CPT/HCPCS: 76604 ==

== ENCOUNTER 2020-12-23 12:10 | Emergency (ER) | payer MEDICARE ==
[~2020-12-23] VITALS: Ht 172.7 cm; Wt 60.0 kg
[2020-12-23 12:33] VITALS: BP 98/43
[2020-12-23 14:39] LABS: BASOPHILS % (AUTO) 0 % (0-1); EOSINOPHILS % (AUTO) 1 % (1-7); LYMPHOCYTES % (AUTO) 7 % (22-44); MEAN CORPUSCULAR HEMOGLOBIN 28.1 pg (27.5-34.5); MEAN CORPUSCULAR HGB CONC 32.8 g/dL (33.2-36.2); MEAN PLATELET VOLUME 7.7 fL (7.4-10.4); MONOCYTES % (AUTO) 6 % (2-9); NEUTROPHILS % (AUTO) 85 % (42-75); PLATELET COUNT 263 x10^3/uL (130-400); RED BLOOD COUNT 3.22 x10^6/uL (4.38-5.82); RED CELL DISTRIBUTION WIDTH 14.4 % (9.4-14.8)
[2020-12-23] MEDS ORDERED: SILVER SULF. CRM 1% , 25GM TP ONE (15:00)
== END 2020-12-23 16:00 | disposition home or self-care (01) ==
LOC: ED 15:39
DX: T25.221A Burn of second degree of right foot, initial encounter (principal); E11.9 Type 2 diabetes mellitus without complications; G20 Parkinson's disease; T31.0 Burns involving less than 10% of body surface; X58.XXXA Exposure to other specified factors, initial encounter; Y93.01 Activity, walking, marching and hiking; Y92.009 Unspecified place in unspecified non-institutional (private) residence as the place of occurrence of the external cause; Y99.8 Other external cause status
CPT/HCPCS: 36415; 85025; 87040; 99283

== ENCOUNTER → 2021-02-01 | Outpatient (CLI) | payer MEDICARE ==
[~2021-02-01] MED LIST changes: +OMNIPAQUE 350 MG/ML, 75ML BOTTLE ONE
== END | disposition home or self-care (01) ==
LOC: CFH 13:33
PROVIDERS: ATTEND Specialist
DX: C43.71 Malignant melanoma of right lower limb, including hip (principal); R91.8 Other nonspecific abnormal finding of lung field; J98.4 Other disorders of lung
CPT/HCPCS: 71260; Q9967